=== PATIENT | female | born 1950 | race Caucasian/White ===

== ENCOUNTER 2016-09-14 05:59 | Inpatient (IN) | payer OTHER, MEDICARE ==
[2016-09-14] MEDS ORDERED: LIDOCAINE 1% 5 ML SDV ONE (06:54)
[2016-09-14] MEDS ORDERED: POLYMYXIN B SULFATE 500,000 UNIT/10 ML SYR IRR ONE (07:00)
[2016-09-14] MEDS ORDERED: CITRATE DEXTROSE SOLN 500 ML BAG ONE (07:00)
[2016-09-14] MEDS ORDERED: BACITRACIN 50,000 UNITS/10 ML SYR IRR ONE (07:01)
[2016-09-14] MEDS ORDERED: LR 1,000 ML IV ONE (07:06)
[2016-09-14] MEDS ORDERED: LACTULOSE 20 GM/30 ML UDCUP PO PRN (07:11)
[2016-09-14] MEDS ORDERED: PROMETHAZINE HCL 25 MG/ML INJ IVP PRN (07:11)
[2016-09-14] MEDS ORDERED: TEMAZEPAM 15 MG CAP PO PRN (07:11)
[2016-09-14] MEDS ORDERED: ONDANSETRON 4 MG/2 ML VIAL IVP PRN (07:11)
[2016-09-14] MEDS ORDERED: MAGNESIUM HYDROXIDE 30 ML UDCUP PO PRN (07:11)
[2016-09-14] MEDS ORDERED: POLYETHYLENE GLYCOL 3350 17 GM PKT PO PRN (07:11)
[2016-09-14] MEDS ORDERED: diphenhydrAMINE 25 MG CAP PO PRN (07:11)
[2016-09-14] MEDS ORDERED: DIPHENOXYLATE/ATROPINE LOMOTIL 1 TAB PO PRN (07:11)
[2016-09-14] MEDS ORDERED: BISACODYL 10 MG SUPP PR PRN (07:11)
[2016-09-14] MEDS ORDERED: traMADol 50 MG TAB PO PRN (07:11)
[2016-09-14] MEDS ORDERED: ONDANSETRON DISINTEGRATING 4 MG TAB PO PRN (07:11)
[2016-09-14] MEDS ORDERED: CYCLOBENZAPRINE 10 MG TAB PO PRN (07:11)
[2016-09-14] MEDS ORDERED: PROMETHAZINE HCL 25 MG SUPPR PR PRN (07:11)
[2016-09-14] MEDS ORDERED: PHARMACY PAIN CONSULT 1 EA MISC PRN (07:11)
[2016-09-14] MEDS ORDERED: DIAZEPAM 5 MG TAB PO PRN (07:11)
[2016-09-14] MEDS ORDERED: METOCLOPRAMIDE 10 MG/2 ML VIAL IVP PRN (07:11)
[2016-09-14] MEDS ORDERED: CEFAZOLIN 2 GM/DEXTROSE/100 ML BAG IV ONE (07:26)
[2016-09-14] MEDS ORDERED: ACETAMINOPHEN 325 MG TAB ONE (07:26)
[2016-09-14] MEDS ORDERED: FAMOTIDINE 20 MG TAB ONE (07:26)
[2016-09-14] MEDS ORDERED: ACETAMINOPHEN 325 MG TAB PO ONE (07:30)
[2016-09-14] MEDS ORDERED: CEFAZOLIN 2 GM/DEXTR 100 ML IV ONE (07:30)
[2016-09-14] MEDS ORDERED: CHLORHEXIDINE GLUC HIBICLENS 118 ML BTL TP ONE (07:30)
[2016-09-14] MEDS ORDERED: ROPI/epiNEPH/KETOROLAC/morphINE JOINT COCKTAIL IU ONE (07:30)
[2016-09-14] MEDS ORDERED: LR 1,000 ML IV SCH (07:30)
[2016-09-14] MEDS ORDERED: FAMOTIDINE 20 MG TAB PO ONE (07:30)
[2016-09-14] MEDS ORDERED: MIDAZOLAM 2 MG/2 ML VIAL ONE (07:45)
[2016-09-14] MEDS ORDERED: PROPOFOL/EMULSION 500 MG/50 ML BOTTLE IV ONE ×2 (07:58→09:39)
[2016-09-14] MEDS ORDERED: fentaNYL 100 MCG/2 ML INJ ONE (07:59)
[2016-09-14] MEDS ORDERED: LIDOCAINE 2% 5 ML SDV ONE (08:00)
[2016-09-14] MEDS: SENNOSIDES/DOCUSATE SODIUM TAB PO SCH ×2 (09:27→21:22)
--- NOTE | 2016-09-14 11:38 | DX ---
Portable pelvis 10:52 a.m. Indication: Left total hip arthroplasty. Findings: A new left total hip arthroplasty is anatomically aligned and well seated. No perihardware fracture or lucency. Surgical drain, skin janusz, and subcutaneous gas are present in the lateral so ft tissue planes. Impression: Good alignment of new left total hip arthroplasty.
[2016-09-14] MEDS: ACETAMINOPHEN 325 MG TAB PO SCH ×2 (12:38→17:33)
[2016-09-14] MEDS ORDERED: ceFAZolin 2 GM/DEXTROSE 100 ML IV SCH (14:00)
[2016-09-14] MEDS: oxyCODONE IR 5 MG TAB PO PRN (14:26)
--- NOTE | 2016-09-14 18:34 | DX ---
Intraoperative Fluoroscopy of the Left Hip Clinical History: 66-year-old female undergoing a left hip arthroplasty. Findings: Dr. Willian Durand used 2.7 seconds of fluoroscopy time and an exposure dose of 0.35 mGy, a nd a single spot matrix intraoperative image was acquired at 11:09 a.m. identifying a complete left h ip arthroplasty with anatomic alignment of the femoral and acetabular components. Cortical retention screws are directed into the left iliac bone. Impression: Intraoperative fluoroscopy provided during an ongoing left hip arthroplasty.
[2016-09-14] MEDS ORDERED: ATORVASTATIN CALCIUM 20 MG TAB PO SCH (21:00)
[2016-09-14] MEDS: FAMOTIDINE 20 MG TAB PO SCH (21:22)
[2016-09-14] MEDS: ASPIRIN 325 MG TAB PO SCH (21:22)
[2016-09-14] MEDS ORDERED: ceFAZolin 2 GM in D5W 100 ML IV SCH (22:00)
[2016-09-15] MEDS: oxyCODONE IR 5 MG TAB PO PRN ×2 (00:17→06:24)
[2016-09-15] MEDS: ACETAMINOPHEN 325 MG TAB PO SCH ×3 (00:17→12:27)
[2016-09-15 05:34] LABS: HEMATOCRIT 26.6 % (38.0-47.0)
--- NOTE | 2016-09-15 07:30 | PDIAF ---
- Diagnosis Diagnosis: left bebe Code Status: Full Code - Medication Management Discharge Medications: Medications to Continue on Transfer Atorvastatin Calcium [Lipitor 20 mg (*)] 20 mg PO HS 08/17/16 [Last Taken ] Aspirin [Aspirin 325 mg (*)] 325 mg PO DAILY #0 tab 09/15/16 [Last Taken Unknown ] Diazepam [Valium 5 MG (*)] 5 mg PO Q6HRS PRN #40 tab 09/15/16 [Last Taken Unknown] oxyCODONE IR [Oxycodone Ir (*)] 5 - 10 mg PO Q3HRS PRN #70 tab 09/15/16 [Last Taken Unknown] Discharge Medications: Refer to the Discharge Home Medication list for PRN reason. - Orders Services needed: Physical Therapy Diet Recommendation: no restrictions on diet Diet Texture: Regular Texture Diet Activity/Weight Bearing Restrictions: wbat. anterior hip precautions - Follow Up Care Current Providers and Referrals: Cachorro Ordaz MD [Primary Care Provider] -
--- NOTE | 2016-09-15 07:33 | SOAPPROG ---
SOAP Progress Note Assessment/Plan: Assessment: s/p left bebe Plan: follow low hct encourage po fluids iron supplements d/c when cleared by pt dvt precautions 09/15/16 07:31 Subjective: mod pain no cp or sob ximena po Objective: Vital Signs Temp Pulse Resp BP Pulse Ox 37 C 64 16 117/59 L 95 09/15/16 04:00 09/15/16 04:00 09/15/16 04:00 09/15/16 04:00 09/15/16 04:00 Laboratory Results 09/15/16 05:01 09/14/16 09/15/16 09/16/16 05:59 05:59 05:59 Intake Total 2725 Output Total 1350 Balance 1375 neg homans xavi incision clean,dry and intact intact pf,df,ehl toes warm and pink sensation intact to light touch throughout xrays stable alignment no fx or lucency ICD10 Worksheet Patient Problems: Problems Problem Status Diagnosed Hip arthritis Acute - ICD10 Problem Qualifiers (1) Hip arthritis
[2016-09-15] MEDS: FAMOTIDINE 20 MG TAB PO SCH (08:31)
[2016-09-15] MEDS: ASPIRIN 325 MG TAB PO SCH (08:31)
[2016-09-15] MEDS: SENNOSIDES/DOCUSATE SODIUM TAB PO SCH (08:32)
[2016-09-15 12:32] VITALS: RESP 14
[2016-09-15 15:35] VITALS: BP 123/72; PULSE 64; TEMP 98.7; O2SAT 94
== END 2016-09-15 18:02 | disposition home health service (06) | DRG 470 ==
LOC: F3N 05:59
PROVIDERS: ADMIT Orthopaedic Surgery; ATTEND Orthopaedic Surgery
PROC: 0SRB04Z Replacement of Left Hip Joint with Ceramic on Polyethylene Synthetic Substitute, Open Approach (ICD-10-PCS; principal; 2016-09-14 08:00)
DX: M16.12 Unilateral primary osteoarthritis, left hip (principal); E78.5 Hyperlipidemia, unspecified
CPT/HCPCS: 97161-GP; 97165-GO; C1713; G8978-GP-CI; G8979-GP-CI; G8980-GP-CI; G8987-GO-CI; G8988-GO-CI; G8989-GO-CI; J0171; J0690; J1885; J2250; J2405; J2704; J2795; J3010; J7060

== ENCOUNTER → 2016-10-28 | Outpatient (CLI) | payer OTHER, MEDICARE | LOC: BMCIMAGING 10:03 | PROVIDERS: ATTEND Orthopaedic Surgery | DX: Z09 Encounter for follow-up examination after completed treatment for conditions other than malignant neoplasm (principal); Z96.642 Presence of left artificial hip joint ==

== ENCOUNTER → 2016-12-09 | Outpatient (CLI) | payer OTHER, MEDICARE | LOC: BMCIMAGING 13:47 | PROVIDERS: ATTEND Orthopaedic Surgery | DX: Z09 Encounter for follow-up examination after completed treatment for conditions other than malignant neoplasm (principal); Z96.642 Presence of left artificial hip joint ==

== ENCOUNTER → 2017-04-16 | Outpatient (CLI) | payer OTHER, MEDICARE | LOC: BHFA 13:45 | PROVIDERS: ATTEND Internal Medicine Cardiovascular Disease | DX: Z82.49 Family history of ischemic heart disease and other diseases of the circulatory system (principal); E78.5 Hyperlipidemia, unspecified ==

== ENCOUNTER → 2017-05-11 | Outpatient (CLI) | payer OTHER, MEDICARE | LOC: BHFA 08:30 | PROVIDERS: ATTEND Internal Medicine Cardiovascular Disease | DX: I34.0 Nonrheumatic mitral (valve) insufficiency (principal); I10 Essential (primary) hypertension ==

== ENCOUNTER → 2018-09-14 | Outpatient (CLI) | payer OTHER, MEDICARE ==
[~2018-09-14] MED LIST: GADOBUTROL 10 ML VIAL IVP ONE
== END ==
LOC: FIMAGING 09:47
PROVIDERS: ATTEND Otolaryngology
DX: R43.0 Anosmia (principal)
CPT/HCPCS: 70553; A9585; 82565-PO